=== PATIENT | female | born 1995 ===

== ENCOUNTER → 2021-04-29 | Outpatient (CLI) | payer OTHER ==
[2021-05-01 14:10] LABS: CHLAMYDIA TRACHOMATIS, NAA Negative (Negative)
== END | disposition home or self-care (01) ==
LOC: LAB SHORT 17:10 → LAB 17:10
PROVIDERS: Advanced Practice Midwife
DX: Z01.419 Encounter for gynecological examination (general) (routine) without abnormal findings (principal); Z11.3 Encounter for screening for infections with a predominantly sexual mode of transmission
CPT/HCPCS: 87491; 87591; G0123